=== PATIENT | female | born 1995 | race American Indian/Alaskan Native ===

== ENCOUNTER 2019-06-06 09:11 | Inpatient (IN) | payer OTHER ==
[2019-06-06] MEDS ORDERED: MORPHINE IV ONE ×2 (09:51→11:19)
[2019-06-06] MEDS ORDERED: ZOFRAN IV ONE ×2 (09:51→15:41)
[2019-06-06] MEDS ORDERED: NACL 0.9% 1000 ML 1,000 ML IV ONE ×2 (09:51→15:41)
--- NOTE | 2019-06-06 09:59 | Emergency Department Report ---
ED Abdominal Pain HPI - General Chief Complaint: Abdominal Pain Stated Complaint: ABD PAIN Time Seen by Provider: 06/06/19 09:40 Source: EMS Mode of arrival: Stretcher Limitations: No Limitations - History of Present Illness Initial Comments: 23-year-old female reports the onset of lower abdominal bilateral pain this morning. She states that her period was "different" and ended yesterday but was on time. Not exactly sure what she means by different. She does not refer acute vaginal discharge. She denies fever. She does refer difficulty with urin ating and mentioned constipation at triage. She said no vomiting. She is not currently reporting nausea. He is a bit emotionally labile at the time of my encounter. However, she is able to tell me that she has never come to the emergency department for evaluation of abdominal pain. She states she had a child 2 years ago but no prior abdominal surgery. MD Complaint: abdominal pain -: Gradual Location: LLQ, RLQ Radiation: none Migration to: no migration Severity: moderate, severe Quality: aching Consistency: constant Improves With: nothing Worsens With: nothing Associated Symptoms: constipation, dysuria - Related Data LMP (females 10-50): this week Allergies Allergy/AdvReac Type Severity Reaction Status Date / Time No Known Allergies Allergy Unverified 06/06/19 09:36 ED Review of Systems ROS: Stated complaint: ABD PAIN Other details as noted in HPI Constitutional: denies: chills, fever Eyes: denies: eye pain, eye discharge, vision change ENT: denies: ear pain, throat pain Respiratory: denies: cough, shortness of breath, wheezing Cardiovascular: denies: chest pain, palpitations Endocrine: no symptoms reported Gastrointestinal: abdominal pain. denies: nausea, diarrhea Genitourinary: dysuria. denies: urgency, discharge Musculoskeletal: denies: back pain, joint swelling, arthralgia Skin: denies: rash, lesions Neurological: denies: headache, weakness, paresthesias Psychiatric: denies: anxiety, depression Hematological/Lymphatic: denies: easy bleeding, easy bruising ED Past Medical Hx - Past Medical History Previous Medical History?: No - Surgical History Past Surgical History?: No - Social History Smoking Status: Never Smoker ED Physical Exam - General Limitations: No Limitations General appearance: alert, in no apparent distress - Head Head exam: Present: atraumatic, normocephalic - Eye Eye exam: Present: normal appearance. Absent: scleral icterus - ENT ENT exam: Present: mucous membranes moist - Neck Neck exam: Present: normal inspection - Respiratory Respiratory exam: Present: normal lung sounds bilaterally. Absent: respiratory distress - Cardiovascular Cardiovascular Exam: Present: regular rate, normal rhythm. Absent: systolic murmur, diastolic murmur, rubs, gallop - GI/Abdominal GI/Abdominal exam: Present: soft, tenderness (lower quadrants, poorly localized), normal bowel sounds. Absent: distended, guarding, rebound, rigid - Speculum exam: Present: normal speculum exam (minimal amount of mucoid discharge:) Bi-manual exam: Present: adnexal tenderness. Absent: cervical motion tendernes, uterine enlargement - Extremities Exam Extremities exam: Present: normal inspection - Back Exam Back exam: Present: normal inspection - Neurological Exam Neurological exam: Present: alert, oriented X3, CN II-XII intact. Absent: motor sensory deficit - Psychiatric Psychiatric exam: Present: normal affect, anxious - Skin Skin exam: Present: warm, dry, intact, normal color. Absent: rash ED Course Vital Signs 06/06/19 06/06/19 06/06/19 09:34 09:36 10:15 Temperature 98.5 F 98 F Pulse Rate 62 78 Respiratory 17 16 20 Rate Blood Pressure 127/65 Blood Pressure 106/78 [Right] O2 Sat by Pulse 100 97 Oximetry 06/06/19 06/06/19 06/06/19 10:17 10:30 10:45 Temperature Pulse Rate 79 82 Respiratory 15 20 20 Rate Blood Pressure 99/41 Blood Pressure [Right] O2 Sat by Pulse 100 100 98 Oximetry 06/06/19 06/06/19 06/06/19 11:00 12:11 13:00 Temperature Pulse Rate 85 88 92 H Respiratory 19 15 21 Rate Blood Pressure 114/58 115/62 123/68 Blood Pressure [Right] O2 Sat by Pulse 99 100 100 Oximetry 06/06/19 14:12 Temperature Pulse Rate Respiratory Rate Blood Pressure 126/59 Blood Pressure [Right] O2 Sat by Pulse 98 Oximetry - Reevaluation(s) Reevaluation #1: Persistent suprapubic discomfort. And mild tenderness on exam. Regard to give the patient ceftriaxone. Asked the nurses to obtain a urine specimen. She will go to CT scan. 06/06/19 13:05 Reevaluation #2: Patient had episodes of fecal incontinence. She is volume depleted and having diarrhea. She is really quite uncomfortable. Her CT was suggestive of ente ritis versus PID or both. Her exam was not early consistent with PID. She certainly has acute cystitis. She'll be admitted for intravenous antibiotic therapy IV fluids and further evaluation by hospitalist service. 06/06/19 15:39 ED Medical Decision Making - Lab Data Result diagrams: 06/06/19 09:48 06/06/19 09:48 Laboratory Results - last 24 hr 06/06/19 06/06/19 06/06/19 09:48 09:48 09:48 WBC 14.2 H RBC 3.92 Hgb 12.1 Hct 36.2 MCV 92 MCH 31 MCHC 33 RDW 13.6 Plt Count 206 Add Manual Diff Complete Total Counted 100 Seg Neutrophils % Software Engineer Advisor Seg Neuts % (Manual) 91.0 H Band Neutrophils % 4.0 Lymphocytes % (Manual) 4.0 L Reactive Lymphs % (Man) 0 Monocytes % (Manual) 1.0 Eosinophils % (Manual) 0 Basophils % (Manual) 0 Metamyelocytes % 0 Myelocytes % 0 Promyelocytes % 0 Blast Cells % 0 Nucleated RBC % Not Reportable Seg Neutrophils # Man 12.9 H Band Neutrophils # 0.6 Lymphocytes # (Manual) 0.6 L Abs React Lymphs (Man) 0.0 Monocytes # (Manual) 0.1 Eosinophils # (Manual) 0.0 Basophils # (Manual) 0.0 Metamyelocytes # 0.0 Myelocytes # 0.0 Promyelocytes # 0.0 Blast Cells # 0.0 WBC Morphology Not Reportable Hypersegmented Neuts Not Reportable Hyposegmented Neuts Not Reportable Hypogranular Neuts Not Reportable Smudge Cells Not Reportable Toxic Granulation Not Reportable Toxic Vacuolation Not Reportable Dohle Bodies Not Reportable Pelger-Huet Anomaly Not Reportable Steven Rods Not Reportable Platelet Estimate Consistent w auto Clumped Platelets Not Reportable Plt Clumps, EDTA Not Reportable Large Platelets Not Reportable Giant Platelets Not Reportable Platelet Satelliting Not Reportable Plt Morphology Comment Not Reportable RBC Morphology Normal Dimorphic RBCs Not Reportable Polychromasia Not Reportable Hypochromasia Not Reportable Poikilocytosis Not Reportable Anisocytosis Not Reportable Microcytosis Not Reportable Macrocytosis Not Reportable Spherocytes Not Reportable Pappenheimer Bodies Not Reportable Sickle Cells Not Reportable Target Cells Not Reportable Tear Drop Cells Not Reportable Ovalocytes Not Reportable Helmet Cells Not Reportable Doyle-Peter Bodies Not Reportable Florence Rings Not Reportable Belinda Cells Not Reportable Bite Cells Not Reportable Crenated Cell Not Reportable Elliptocytes Not Reportable Acanthocytes (Spur) Not Reportable Rouleaux Not Reportable Hemoglobin C Crystals Not Reportable Schistocytes Not Reportable Malaria parasites Not Reportable Rodrigue Bodies Not Reportable Hem Pathologist Commnt No Sodium Potassium Chloride Carbon Dioxide Anion Gap BUN Creatinine Estimated GFR BUN/Creatinine Ratio Glucose Calcium Total Bilirubin AST ALT Alkaline Phosphatase Total Protein Albumin Albumin/Globulin Ratio Lipase 21 HCG, Qual Negative Urine Color Urine Turbidity Urine pH Ur Specific [place] Urine Protein Urine Glucose (UA) Urine Ketones Urine Blood Urine Nitrite Urine Bilirubin Urine Urobilinogen Ur Leukocyte Esterase Urine WBC (Auto) Urine RBC (Auto) U Epithel Cells (Auto) Urine Bacteria (Auto) Urine Mucus 06/06/19 06/06/19 09:48 13:30 WBC RBC Hgb Hct MCV MCH MCHC RDW Plt Count Add Manual Diff Total Counted Seg Neutrophils % Seg Neuts % (Manual) Band Neutrophils % Lymphocytes % (Manual) Reactive Lymphs % (Man) Monocytes % (Manual) Eosinophils % (Manual) Basophils % (Manual) Metamyelocytes % Myelocytes % Promyelocytes % Blast Cells % Nucleated RBC % Seg Neutrophils # Man Band Neutrophils # Lymphocytes # (Manual) Abs React Lymphs (Man) Monocytes # (Manual) Eosinophils # (Manual) Basophils # (Manual) Metamyelocytes # Myelocytes # Promyelocytes # Blast Cells # WBC Morphology Hypersegmented Neuts Hyposegmented Neuts Hypogranular Neuts Smudge Cells Toxic Granulation Toxic Vacuolation Dohle Bodies Pelger-Huet Anomaly Steven Rods Platelet Estimate Clumped Platelets Plt Clumps, EDTA Large Platelets Giant Platelets Platelet Satelliting Plt Morphology Comment RBC Morphology Dimorphic RBCs Polychromasia Hypochromasia Poikilocytosis Anisocytosis Microcytosis Macrocytosis Spherocytes Pappenheimer Bodies Sickle Cells Target Cells Tear Drop Cells Ovalocytes Helmet Cells Doyle-Peter Bodies Florence Rings Belinda Cells Bite Cells Crenated Cell Elliptocytes Acanthocytes (Spur) Rouleaux Hemoglobin C Crystals Schistocytes Malaria parasites Rodrigue Bodies Hem Pathologist Commnt Sodium 138 Potassium 4.3 Chloride 104.5 Carbon Dioxide 22 Anion Gap 16 BUN 13 Creatinine 0.9 Estimated GFR > 60 BUN/Creatinine Ratio 14 Glucose 116 H Calcium 9.2 Total Bilirubin 0.60 AST 15 ALT 12 Alkaline Phosphatase 55 Total Protein 6.9 Albumin 4.0 Albumin/Globulin Ratio 1.4 Lipase HCG, Qual Urine Color Yellow Urine Turbidity Cloudy Urine pH 6.0 Ur Specific [place] 1.013 Urine Protein 30 mg/dl Urine Glucose (UA) Neg Urine Ketones 20 Urine Blood Mod Urine Nitrite Neg Urine Bilirubin Neg Urine Urobilinogen < 2.0 Ur Leukocyte Esterase Lg Urine WBC (Auto) > 182.0 H Urine RBC (Auto) 16.0 U Epithel Cells (Auto) 9.0 Urine Bacteria (Auto) 1+ Urine Mucus Few - Radiology Data IMPRESSION: 1. There appears be mild inflammation involving cervix and uterus. Correlate clinically for cervicitis or pelvic inflammatory disease. No hydrosalpinx is seen. 2. Distal small bowel is mildly fluid-filled, as is the proximal colon. This could be reactive ileus related to the pelvic inflammatory process. Enteritis could have this appearance. Signer Name: Anastacio Finch MD Ultrasound no acute process Critical care attestation.: If time is entered above; I have spent that time in minutes in the direct care of this critically ill patient, excluding procedure time. ED Disposition Clinical Impression: Enteritis, Dehydration Acute cystitis Qualifiers: Hematuria presence: with hematuria Qualified Code(s): N30.01 - Acute cystitis with hematuria Disposition: OP ADMIT IP TO THIS HOSP Is pt being admited?: Yes Does the pt Need Aspirin: No Condition: Stable Instructions: Abdominal Pain (ED) Referrals: CLARK GRACIA MD [Primary Care Provider] - 3-5 Days Time of Disposition: 15:42
[2019-06-06 10:04] LABS: Hematocrit 36.2 % (30.3-42.9); Hemoglobin 12.1 gm/dl (10.1-14.3); Mean Corpuscular HGB Conc 33 % (30-34); Mean Corpuscular Volume 92 fl (79-97); Platelet Count 206 K/mm3 (140-440); Red Blood Count 3.92 M/mm3 (3.65-5.03); Red Cell Distribution Width 13.6 % (13.2-15.2)
[2019-06-06 10:32] LABS: Alanine Aminotransferase 12 units/L (7-56); BUN/Creatinine Ratio 14; Blood Urea Nitrogen 13 mg/dL (7-17); Calcium 9.2 mg/dL (8.4-10.2); Hemolysis Index 6
[2019-06-06 11:18] LABS: Band Neutrophils # (Manual) 0.6 K/mm3; Basophils % (Manual) 0 % (0.0-1.8); Eosinophils % (Manual) 0 % (0.0-4.3); Total Cells Counted 100
[2019-06-06 11:19] LABS: Platelet Estimate Consistent w Auto; RBC Morphology Normal
--- NOTE | 2019-06-06 12:52 | Ultrasound Report ---
ULTRASOUND PELVIS INDICATION / CLINICAL INFORMATION: lower abd pain. TECHNIQUE: Transabdominal. Duplex Color Doppler used: Yes. COMPARISON: None available FINDINGS: UTERUS: Present. - Appearance (if present): No significant abnormality. - Size in cm (if present): 11.8 x 5.6 x 5.9. - Endometrial Complex (if present): No significant abnormality.. Thickness in cm (if measured) = 1.3 - Mass lesions: None. - Additional findings: None. RIGHT ADNEXA: Small 1 cm right ovarian cyst. Normal color Doppler blood flow. LEFT ADNEXA: No significant ovarian cyst or mass. Normal color Doppler blood flow. URINARY BLADDER: No significant abnormality. FREE FLUID: None. ADDITIONAL FINDINGS: None. IMPRESSION: 1. No acute sonographic abnormality of the pelvis. 2. 1 cm right ovarian cyst is almost certainly benign and requires no follow-up. Signer Name: Jcarlos Davalos MD Signed: 06/06/2019 12:48 PM Workstation Name: [id number]
[2019-06-06] MEDS ORDERED: ROCEPHIN/NS 1 GM/50 ML 1 GM/50 ML BAG IV ONE (13:05)
[2019-06-06 13:59] LABS: Bacteria,Urine 1+ /HPF (Negative); Bilirubin,Urine NEG (Negative); Blood,Urine MOD (Negative); Color,Urine Yellow (Yellow); Mucus,Urine FEW /HPF; Urobilinogen,Urine < 2.0 mg/dL (<2.0)
[2019-06-06 14:01] LABS: WBC,Urine > 182.0 /HPF (0.0-6.0)
--- NOTE | 2019-06-06 14:12 | Cat Scan Report ---
CT ABDOMEN AND PELVIS WITH IV CONTRAST INDICATION: suprapubic pain. COMPARISON: None available. TECHNIQUE: All CT scans at this facility use dose modulation, automated exposure control, iterative reconstructi on or weight based dosing, when appropriate, to reduce radiation dose to as low as reasonably achieva ble. FINDINGS: Lung Bases: Clear. Skeletal System: No acute abnormality. ABDOMEN: Liver: Normal. Gallbladder: Normal. Bile Ducts: Normal. Pancreas: Normal. Spleen: Normal. Adrenals: Normal. Right Kidney: Normal. Left Kidney: Normal. Stomach and Bowel: Distal loops of small bowel are mildly distended with fluid. Lymph Nodes: No significant adenopathy. Aorta: No significant abnormality. Additional Findings: None. PELVIS: Colon: Proximal colon is fluid-filled. There is no colonic inflammation. Urinary Bladder and Distal Ureters: Bladder is decompressed, limiting its evaluation. Appendix: Normal. Lymph Nodes: No significant adenopathy. Additional Findings: There is mild enhancement along the periphery of the uterus. The endometrium yoon ears thickened. Cervix is thickened. There is gas in the vaginal vault. There is mild stranding aroun d the cervix in the pelvis. IMPRESSION: 1. There appears be mild inflammation involving cervix and uterus. Correlate clinically for cervicit is or pelvic inflammatory disease. No hydrosalpinx is seen. 2. Distal small bowel is mildly fluid-filled, as is the proximal colon. This could be reactive ileus related to the pelvic inflammatory process. Enteritis could have this appearance. Signer Name: Anastacio Finch MD Signed: 06/06/2019 2:07 PM Workstation Name: [id number]
[2019-06-06] MEDS ORDERED: CLEOCIN 600 MG/50 mL 600 MG/50 ML BAG IV ONE (15:10)
[2019-06-06] MEDS ORDERED: ZOFRAN ONE (15:29)
[2019-06-06] MEDS ORDERED: FLAGYL 500 MG/100 ML 500 MG/100 ML BAG IV ONE (15:41)
--- NOTE | 2019-06-06 17:59 | History and Physical Report ---
History of Present Illness Chief complaint: Im hurting down there History of present illness: 23 YO Female with no PMH presents to ED for evaluation. Pt states that she has experienced pain in her abdomen over the past 1 day with persistently worsening symptoms over the past 8 hours. Pt states that her LNMP began 6 days ago, and ended yesterday, but "was Different". Pt acknowledges thick vaginal discharge, as well as pain with urination. 23-year-old female reports the onset of lower abdominal bilateral pain this morning. She states that her period was "different" and ended yesterday but was on time. Not exactly sure what she means by different. She does not refer acute vaginal discharge. She denies fever. She does refer difficulty with urinating and mentioned constipation at triage. She said no vomiting. She is not currently reporting nausea. He is a bit emotionally labile at the time of my encounter. However, she is able to tell me that she has never come to the emergency department for evaluation of abdominal pain. She states she had a child 2 years ago but no prior abdominal surgery. MD Complaint: abdominal pain -: Gradual Location: LLQ, RLQ Radiation: none Migration to: no migration Severity: moderate, severe Quality: aching Consistency: constant Improves With: nothing Worsens With: nothing Associated Symptoms: constipation, dysuria - Related Data LMP (females 10-50): this week Allergies Allergy/AdvReac Type Severity Reaction Status Date / Time No Known Allergies Allergy Unverified 06/06/19 09:36 ED Review of Systems ROS: Stated complaint: ABD PAIN Other details as noted in HPI Constitutional: denies: chills, fever Eyes: denies: eye pain, eye discharge, vision change ENT: denies: ear pain, throat pain Respiratory: denies: cough, shortness of breath, wheezing Cardiovascular: denies: chest pain, palpitations Endocrine: no symptoms reported Gastrointestinal: abdominal pain. denies: nausea, diarrhea Genitourinary: dysuria. denies: urgency, discharge Musculoskeletal: denies: back pain, joint swelling, arthralgia Skin: denies: rash, lesions Neurological: denies: headache, weakness, paresthesias Psychiatric: denies: anxiety, depression Hematological/Lymphatic: denies: easy bleeding, easy bruising ED Past Medical Hx - Past Medical History Previous Medical History?: No - Surgical History Past Surgical History?: No - Social History Smoking Status: Never Smoker Past History Past Medical History: No medical history, other (reviewed) Past Surgical History: No surgical history, Other (Reviewed) Social history: single. denies: smoking, alcohol abuse, prescription drug abuse Family history: no significant family history (reviewed) Medications and Allergies Allergies Allergy/AdvReac Type Severity Reaction Status Date / Time No Known Allergies Allergy Unverified 06/06/19 09:36 Review of Systems Constitutional: no weight loss Ears, nose, mouth and throat: no ear pain, no ear discharge, no decreased hearing, no nasal congestion, no nasal discharge Breasts: no change in shape, no swelling, no mass Cardiovascular: no chest pain, no orthopnea, no palpitations, no rapid/irregular heart beat, no edema Respiratory: no cough, no cough with sputum, no hemoptysis, no shortness of breath Gastrointestinal: no abdominal pain, no vomiting, no diarrhea, no hematemesis Genitourinary Female: pelvic pain, dysuria, vaginal discharge, no urinary frequency, no stress incontinence, no post void dribbling, no vaginal itching, no vaginal odor, no genital sores, no vaginal dryness Rectal: no pain, no incontinence, no bleeding Musculoskeletal: no neck stiffness, no neck pain, no shooting arm pain, no arm numbness/tingling, no low back pain, no leg numbness/tingling Integumentary: no rash, no redness, no sores, no wounds Neurological: no head injury, no paralysis, no weakness, no numbness, no tingling, no syncope, no tremors Psychiatric: no anxiety, no memory loss, no change in sleep habits, no sleep disturbances, no insomnia, no hypersomnia Exam - Constitutional Vitals: Temp Pulse Resp BP Pulse Ox 98 F 92 H 21 126/59 98 06/06/19 09:36 06/06/19 13:00 06/06/19 13:00 06/06/19 14:12 06/06/19 14:12 General appearance: Present: mild distress - EENT Eyes: Present: PERRL ENT: hearing intact, clear oral mucosa - Neck Neck: Present: supple, normal ROM - Respiratory Respiratory effort: normal Respiratory: bilateral: CTA - Cardiovascular Heart Sounds: Present: S1 & S2. Absent: rub, click - Extremities Extremities: pulses symmetrical, No edema Peripheral Pulses: within normal limits - Abdominal General gastrointestinal: Present: soft, tender, non-distended, normal bowel sounds, other (mild suprapubic tenderness). Absent: absent bowel sounds, hepatomegaly, splenomegaly Female genitourinary: Present: normal - Integumentary Integumentary: Present: clear, warm, dry - Musculoskeletal Musculoskeletal: gait normal, strength equal bilaterally - Psychiatric Psychiatric: appropriate mood/affect, intact judgment & insight - Neurologic Neurologic: CNII-XII intact, moves all extremities Results - Labs CBC & Chem 7: 06/06/19 09:48 06/06/19 09:48 Labs: Abnormal lab results 06/06/19 06/06/19 06/06/19 Range/Units 09:48 09:48 13:30 WBC 14.2 H (4.5-11.0) K/mm3 Seg Neuts % (Manual) 91.0 H (40.0-70.0) % Lymphocytes % (Manual) 4.0 L (13.4-35.0) % Seg Neutrophils # Man 12.9 H (1.8-7.7) K/mm3 Lymphocytes # (Manual) 0.6 L (1.2-5.4) K/mm3 Glucose 116 H (65-100) mg/dL Urine WBC (Auto) > 182.0 H (0.0-6.0) /HPF Assessment and Plan - Patient Problems (1) UTI (urinary tract infection) Current Visit: Yes Status: Acute Qualifiers: Encounter type: initial encounter Plan to address problem: IV antibiotic therapy, urinalysis, CBC, CMP, supportive care. (2) SIRS (systemic inflammatory response syndrome) Current Visit: Yes Status: Acute Plan to address problem: IV antibiotic therapy, GC/Chlamydia,CBC, CMP, chest x ray, serial lactic acid, CT Abdomen, Pelvic Ultrasound. (3) Cervicitis Current Visit: Yes Status: Acute Plan to address problem: Discussed patient with COMMUNITY CHEST OFFICER physician ironer or presser. Recommend hospitalist service admit, and continue abx therapy. No further COMMUNITY CHEST OFFICER input. (4) DVT prophylaxis Current Visit: Yes Status: Acute Plan to address problem: SCD to BLE while in bed
[2019-06-06] MEDS ORDERED: PROVENTIL IH PRN (18:02)
[2019-06-06] MEDS ORDERED: TYLENOL PO PRN (18:02)
[2019-06-06] MEDS ORDERED: ZOFRAN IV PRN (18:02)
[2019-06-06] MEDS ORDERED: SODIUM CHLORIDE FLUSH SYRINGE 10 ML IV PRN (18:02)
[2019-06-06] MEDS ORDERED: NACL 0.9% 1000 ML IV ONE (19:00)
[2019-06-06] MEDS ORDERED: TYLENOL ONE (19:06)
[2019-06-06] MEDS ORDERED: NACL 0.9% 1000 ML 1,000 ML ONE (20:12)
[2019-06-06] MEDS: MAXIPIME/NS 2 GM/100 ML 2 GM/100 ML BAG IV SCH (22:30)
[2019-06-06] MEDS: SODIUM CHLORIDE FLUSH SYRINGE 10 ML IV SCH (22:30)
[2019-06-06] MEDS: NACL 0.9% 1000 ML 1,000 ML IV SCH (23:21)
[2019-06-06] MEDS: MORPHINE IV PRN (23:21)
[2019-06-07] MEDS: NACL 0.9% 1000 ML 1,000 ML IV SCH (07:46)
[2019-06-07 09:15] LABS: Hematocrit 31.5 % (30.3-42.9); Hemoglobin 10.3 gm/dl (10.1-14.3); Mean Corpuscular HGB Conc 33 % (30-34); Mean Corpuscular Volume 92 fl (79-97); Platelet Count 165 K/mm3 (140-440); Red Blood Count 3.44 M/mm3 (3.65-5.03); Red Cell Distribution Width 13.4 % (13.2-15.2)
[2019-06-07] MEDS: SODIUM CHLORIDE FLUSH SYRINGE 10 ML IV SCH ×2 (10:00→21:50)
[2019-06-07] MEDS: MAXIPIME/NS 2 GM/100 ML 2 GM/100 ML BAG IV SCH ×2 (10:00→21:50)
[2019-06-07] MEDS ORDERED: D5W/NS W/KCL 20MEQ 20 MEQ/1,000 ML BAG IV SCH (11:00)
--- NOTE | 2019-06-07 11:12 | XRay Report ---
. ABDOMEN 1 VIEW(S) INDICATION / CLINICAL INFORMATION: ILIUS. COMPARISON: None available. FINDINGS: TUBES / LINES: None. BOWEL GAS PATTERN/EXTRALUMINAL GAS: No significant abnormality. No pneumatosis or secondary signs of free air. ADDITIONAL FINDINGS: No significant additional findings. IMPRESSION: 1. No significant abnormality. Signer Name: Michael Cramer MD Signed: 06/07/2019 11:08 AM Workstation Name: [id number]
[2019-06-07] MEDS: FLAGYL 500 MG/100 ML 500 MG/100 ML BAG IV SCH ×2 (12:00→21:50)
--- NOTE | 2019-06-07 14:48 | Progress Note ---
Assessment and Plan / UTI (urinary tract infection) IV antibiotic therapy, follow urine cx, blood cx / SIRS (systemic inflammatory response syndrome) IV antibiotic therapy, follow cx, pending lab / Cervicitis vs PID continue abx therapy, obg/senior maintenance technician consulted. ordered HIV/rpr/STD panel / DVT prophylaxis SCD to BLE while in bed Brief History: 23 YO Female with no PMH presents to ED for evaluation of pain in her abdomen over the past 1 day with persistently worsening symptoms over the past 8 hours. Pt states that her LNMP began 6 days ago, and ended yesterday, but "was Different". Pt acknowledges thick vaginal discharge, as well as pain with urination. CT abdomen/pelvis in the ER suggesting PID, eventhough pelvic US was normal. consulted obg/senior maintenance technician. Subjective Date of service: 06/07/19 Interval history: patient seen and examined afebrile this am, still has lower abdominal pain, no n/v Objective - Constitutional Vitals: Vital Signs - 12hr 06/07/19 06/07/19 05:53 12:14 Temperature 98.6 F 99.2 F Pulse Rate 88 76 Respiratory 18 14 Rate Blood Pressure 103/56 111/56 O2 Sat by Pulse 100 100 Oximetry General appearance: Present: no acute distress, well-nourished - EENT Eyes: PERRL, EOM intact ENT: hearing intact, clear oral mucosa Ears: bilateral: normal - Neck Neck: supple, normal ROM - Respiratory Respiratory effort: normal Respiratory: bilateral: CTA - Cardiovascular Rhythm: regular Heart Sounds: Present: S1 & S2. Absent: gallop, rub Extremities: pulses intact, No edema, normal color, Full ROM - Gastrointestinal General gastrointestinal: Present: soft, tender (pelvic region), non-distended, normal bowel sounds - Genitourinary Female genitourinary: deferred - Integumentary Integumentary: clear, warm, dry - Musculoskeletal Musculoskeletal: 1, strength equal bilaterally - Neurologic Neurologic: moves all extremities - Psychiatric Psychiatric: memory intact, appropriate mood/affect, intact judgment & insight - Labs CBC & Chem 7: 06/07/19 08:42 06/06/19 09:48 Labs: Abnormal lab results 06/07/19 Range/Units 08:42 WBC 15.7 H (4.5-11.0) K/mm3 RBC 3.44 L (3.65-5.03) M/mm3
[2019-06-07] MEDS: MORPHINE IV PRN ×2 (15:56→21:49)
[2019-06-08] MEDS: MORPHINE IV PRN (01:45)
[2019-06-08 05:30] LABS: Basophils # (Auto) 0.1 K/mm3 (0.0-0.1); Basophils % (Auto) 0.7 % (0.0-1.8); Eosinophils # (Auto) 0.1 K/mm3 (0.0-0.4); Eosinophils % (Auto) 0.8 % (0.0-4.3); Hemoglobin 10.1 gm/dl (10.1-14.3); Lymphocytes # (Auto) 1.2 K/mm3 (1.2-5.4); Lymphocytes % (Auto) 8.4 % (13.4-35.0); Mean Corpuscular HGB Conc 34 % (30-34); Mean Corpuscular Volume 91 fl (79-97); Monocytes # (Auto) 0.5 K/mm3 (0.0-0.8); Monocytes % (Auto) 3.7 % (0.0-7.3); Platelet Count 168 K/mm3 (140-440); Red Cell Distribution Width 13.4 % (13.2-15.2)
[2019-06-08] MEDS: FLAGYL 500 MG/100 ML 500 MG/100 ML BAG IV SCH ×2 (05:39→13:38)
[2019-06-08] MEDS: SODIUM CHLORIDE FLUSH SYRINGE 10 ML IV SCH (10:46)
[2019-06-08] MEDS: MAXIPIME/NS 2 GM/100 ML 2 GM/100 ML BAG IV SCH (10:47)
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
[2019-06-08] MEDS ORDERED: ZITHROMAX 500 MG in NACL 0.9% 250ML 250 ML IV SCH (15:00)
--- NOTE | 2019-06-08 16:11 | Progress Note ---
Assessment and Plan Assessment and plan: --Cervicitis / PID IV abx therapy, obg/fpga design engineer evaluation noted and appreciated HIV/rpr negative, follow cultures -- UTI (urinary tract infection) IV antibiotic therapy, follow urine cx, blood cx --SIRS (systemic inflammatory response syndrome) IV antibiotic therapy, follow cx, pending lab --DVT prophylaxis SCD to BLE while in bed Brief History: 23 YO Female with no PMH presents to ED for evaluation of pain in her abdomen over the past 1 day with persistently worsening symptoms over the past 8 hours. Pt states that her LNMP began 6 days ago, and ended yesterday, but "was Different". Pt acknowledges thick vaginal discharge, as well as pain with urination. CT abdomen/pelvis in the ER suggesting PID, eventhough pelvic US was normal. consulted obg/fpga design engineer. History Interval history: Seen and examined medical records reviewed Patient complains of vague abdominal pain and diarrhea On IV antibiotics, RETAIL TIRE SALES MANAGER evaluation and recommendations noted and appreciated Alert awake oriented 3, Vital signs noted Hospitalist Physical - Constitutional Vitals: Temp Pulse Resp BP Pulse Ox 98.8 F 85 18 121/72 100 06/08/19 13:08 06/08/19 13:08 06/08/19 13:08 06/08/19 13:08 06/08/19 13:08 General appearance: Present: no acute distress, well-nourished - EENT Eyes: Present: PERRL, EOM intact - Neck Neck: Present: supple, normal ROM - Respiratory Respiratory effort: normal Respiratory: bilateral: diminished, negative: rales, rhonchi, wheezing - Cardiovascular Rhythm: regular Heart Sounds: Present: S1 & S2 - Extremities Extremities: no ischemia, No edema - Abdominal General gastrointestinal: soft, non-tender, non-distended, normal bowel sounds - Integumentary Integumentary: Present: clear, warm - Psychiatric Psychiatric: appropriate mood/affect, cooperative - Neurologic Neurologic: CNII-XII intact, moves all extremities Results - Labs CBC & Chem 7: 06/08/19 04:50 06/06/19 09:48 Labs: Laboratory Last Values WBC 14.1 K/mm3 (4.5-11.0) H 06/08/19 04:50 RBC 3.30 M/mm3 (3.65-5.03) L 06/08/19 04:50 Hgb 10.1 gm/dl (10.1-14.3) 06/08/19 04:50 Hct 30.0 % (30.3-42.9) L 06/08/19 04:50 MCV 91 fl (79-97) 06/08/19 04:50 MCH 31 pg (28-32) 06/08/19 04:50 MCHC 34 % (30-34) 06/08/19 04:50 RDW 13.4 % (13.2-15.2) 06/08/19 04:50 Plt Count 168 K/mm3 (140-440) 06/08/19 04:50 Lymph % (Auto) 8.4 % (13.4-35.0) L 06/08/19 04:50 [place] % (Auto) 3.7 % (0.0-7.3) 06/08/19 04:50 Eos % (Auto) 0.8 % (0.0-4.3) 06/08/19 04:50 Baso % (Auto) 0.7 % (0.0-1.8) 06/08/19 04:50 Lymph # 1.2 K/mm3 (1.2-5.4) 06/08/19 04:50 [place] # 0.5 K/mm3 (0.0-0.8) 06/08/19 04:50 Eos # 0.1 K/mm3 (0.0-0.4) 06/08/19 04:50 Baso # 0.1 K/mm3 (0.0-0.1) 06/08/19 04:50 Add Manual Diff Complete 06/06/19 09:48 Total Counted 100 06/06/19 09:48 Seg Neutrophils % 86.4 % (40.0-70.0) H 06/08/19 04:50 Seg Neuts % (Manual) 91.0 % (40.0-70.0) H 06/06/19 09:48 4.0 % 06/06/19 09:48 4.0 % (13.4-35.0) L 06/06/19 09:48 Reactive Lymphs % (Man) 0 % 06/06/19 09:48 1.0 % (0.0-7.3) 06/06/19 09:48 0 % (0.0-4.3) 06/06/19 09:48 0 % (0.0-1.8) 06/06/19 09:48 0 % 06/06/19 09:48 0 % 06/06/19 09:48 0 % 06/06/19 09:48 0 % 06/06/19 09:48 Nucleated RBC % Not Reportable 06/06/19 09:48 Seg Neutrophils # 12.2 K/mm3 (1.8-7.7) H 06/08/19 04:50 Seg Neutrophils # Man 12.9 K/mm3 (1.8-7.7) H 06/06/19 09:48 Band Neutrophils # 0.6 K/mm3 06/06/19 09:48 0.6 K/mm3 (1.2-5.4) L 06/06/19 09:48 Abs React Lymphs (Man) 0.0 K/mm3 06/06/19 09:48 0.1 K/mm3 (0.0-0.8) 06/06/19 09:48 0.0 K/mm3 (0.0-0.4) 06/06/19 09:48 0.0 K/mm3 (0.0-0.1) 06/06/19 09:48 0.0 K/mm3 06/06/19 09:48 0.0 K/mm3 06/06/19 09:48 0.0 K/mm3 06/06/19 09:48 Blast Cells # 0.0 K/mm3 06/06/19 09:48 WBC Morphology Not Reportable 06/06/19 09:48 Hypersegmented Neuts Not Reportable 06/06/19 09:48 Hyposegmented Neuts Not Reportable 06/06/19 09:48 Hypogranular Neuts Not Reportable 06/06/19 09:48 Not Reportable 06/06/19 09:48 Not Reportable 06/06/19 09:48 Not Reportable 06/06/19 09:48 Not Reportable 06/06/19 09:48 Not Reportable 06/06/19 09:48 Not Reportable 06/06/19 09:48 Consistent w auto 06/06/19 09:48 Not Reportable 06/06/19 09:48 Plt Clumps, EDTA Not Reportable 06/06/19 09:48 Not Reportable 06/06/19 09:48 Not Reportable 06/06/19 09:48 Not Reportable 06/06/19 09:48 Plt Morphology Comment Not Reportable 06/06/19 09:48 RBC Morphology Normal 06/06/19 09:48 Dimorphic RBCs Not Reportable 06/06/19 09:48 Not Reportable 06/06/19 09:48 Not Reportable 06/06/19 09:48 Not Reportable 06/06/19 09:48 Not Reportable 06/06/19 09:48 Not Reportable 06/06/19 09:48 Not Reportable 06/06/19 09:48 Not Reportable 06/06/19 09:48 Not Reportable 06/06/19 09:48 Not Reportable 06/06/19 09:48 Not Reportable 06/06/19 09:48 Not Reportable 06/06/19 09:48 Not Reportable 06/06/19 09:48 Not Reportable 06/06/19 09:48 Not Reportable 06/06/19 09:48 Not Reportable 06/06/19 09:48 Not Reportable 06/06/19 09:48 Not Reportable 06/06/19 09:48 Not Reportable 06/06/19 09:48 Not Reportable 06/06/19 09:48 Acanthocytes (Spur) Not Reportable 06/06/19 09:48 Rouleaux Not Reportable 06/06/19 09:48 Not Reportable 06/06/19 09:48 Not Reportable 06/06/19 09:48 Not Reportable 06/06/19 09:48 Not Reportable 06/06/19 09:48 Hem Pathologist Commnt No 06/06/19 09:48 Sodium 138 mmol/L (137-145) 06/06/19 09:48 Potassium 4.3 mmol/L (3.6-5.0) 06/06/19 09:48 Chloride 104.5 mmol/L (98-107) 06/06/19 09:48 Carbon Dioxide 22 mmol/L (22-30) 06/06/19 09:48 16 mmol/L 06/06/19 09:48 BUN 13 mg/dL (7-17) 06/06/19 09:48 0.9 mg/dL (0.7-1.2) 06/06/19 09:48 Estimated GFR > 60 ml/min 06/06/19 09:48 14 % 06/06/19 09:48 Glucose 116 mg/dL (65-100) H 06/06/19 09:48 Lactic Acid 1.90 mmol/L (0.7-2.0) 06/07/19 00:46 Calcium 9.2 mg/dL (8.4-10.2) 06/06/19 09:48 0.60 mg/dL (0.1-1.2) 06/06/19 09:48 AST 15 units/L (5-40) 06/06/19 09:48 ALT 12 units/L (7-56) 06/06/19 09:48 55 units/L (35-129) 06/06/19 09:48 6.9 g/dL (6.3-8.2) 06/06/19 09:48 4.0 g/dL (3.9-5) 06/06/19 09:48 1.4 % 06/06/19 09:48 21 units/L (13-60) 06/06/19 09:48 HCG, Qual Negative (Negative) 06/06/19 09:48 Yellow (Yellow) 06/06/19 13:30 Cloudy (Clear) 06/06/19 13:30 6.0 (5.0-7.0) 06/06/19 13:30 Ur Specific [place] 1.013 (1.003-1.030) 06/06/19 13:30 30 mg/dl mg/dL (Negative) 06/06/19 13:30 Neg mg/dL (Negative) 06/06/19 13:30 20 mg/dL (Negative) 06/06/19 13:30 Mod (Negative) 06/06/19 13:30 Neg (Negative) 06/06/19 13:30 Neg (Negative) 06/06/19 13:30 < 2.0 mg/dL (<2.0) 06/06/19 13:30 Ur Leukocyte Esterase Lg (Negative) 06/06/19 13:30 > 182.0 /HPF (0.0-6.0) H 06/06/19 13:30 16.0 /HPF (0.0-6.0) 06/06/19 13:30 U Epithel Cells (Auto) 9.0 /HPF (0-13.0) 06/06/19 13:30 1+ /HPF (Negative) 06/06/19 13:30 Few /HPF 06/06/19 13:30 RPR Nonreactive (Nonreactive) 06/07/19 11:27 HIV 1&2 Antibody Rapid Non react (Non React) 06/07/19 11:27 Non react (Non React) 06/07/19 11:27 Active Medications - Current Medications Current Medications: Generic Name Dose Route Start Last Admin Trade Name Freq PRN Reason Stop Dose Admin Acetaminophen 650 mg 06/06/19 18:02 06/06/19 19:09 Tylenol PO 650 mg Q4H PRN Administration Pain MILD(1-3)/Fever >100.5/ALVARADO Albuterol 2.5 mg 06/06/19 18:02 Proventil IH Q4H PRN Shortness Of Breath Cefepime HCl 2 gm in 100 mls @ 200 mls/hr 06/06/19 22:00 06/08/19 10:47 Maxipime/Ns 2 Gm/100 Ml IV 200 mls/hr Q12HR ORION Administration Protocol Sodium Chloride 1,000 mls @ 125 mls/hr 06/06/19 23:00 06/07/19 07:46 Nacl 0.9% 1000 Ml IV 125 mls/hr DIRECT ORION Administration Potassium Chloride/Dextrose/Sod Cl 20 meq in 1,000 mls @ 75 mls/hr 06/07/19 11:00 06/08/19 01:36 D5w/Ns W/Kcl 20meq IV 75 mls/hr DIRECT ORION Administration Metronidazole 500 mg in 100 mls @ 100 mls/hr 06/07/19 12:00 06/08/19 13:38 Flagyl 500 Mg/100 Ml IV 100 mls/hr Q8HR ORION Administration Protocol Morphine Sulfate 2 mg 06/06/19 22:58 06/08/19 01:45 Morphine IV 2 mg Q4H PRN Administration Pain, Moderate (4-6) Ondansetron HCl 4 mg 06/06/19 18:02 06/07/19 21:49 Zofran IV 4 mg Q8H PRN Administration Nausea And Vomiting Sodium Chloride 10 ml 06/06/19 22:00 06/08/19 10:46 Sodium Chloride Flush Syringe 10 Ml IV 10 ml BID ORION Administration Sodium Chloride 10 ml 06/06/19 18:02 Sodium Chloride Flush Syringe 10 Ml IV PRN PRN LINE FLUSH
[2019-06-08 19:35] VITALS: BP 133/61
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
--- NOTE | 2019-06-09 13:38 | Event Note ---
Date: 06/09/19 +GC noted, spoke with Dr. Walls who will contact patient for evaluation and possible additional treatment
--- NOTE | 2019-06-09 17:27 | Event Note ---
Date: 06/09/19 Patient's GC DNA is positive Called Ms.Esquivel Miranda at [phone] and discussed the positive test report Discussed the importance of immediate treatment and further evaluation, Advised to see [facility] or ID specialist for the treatment and further evaluation.Patient verbalized understanding and agreed to follow the instructions. I also advised her to see ID specialist ASHLEY and gave the below information. Dr.Kairav Jeronimo DUDLEY [ ID ] [facility] infectious disease consultants Office; [phone] [id number]
== END 2019-06-08 18:45 | disposition left against medical advice (07) | DRG 758 ==
LOC: ED 09:11 → 3A 18:02
PROVIDERS: ADMIT Internal Medicine; ATTEND Internal Medicine
DX: N72 Inflammatory disease of cervix uteri (principal); N30.00 Acute cystitis without hematuria; R65.10 Systemic inflammatory response syndrome (SIRS) of non-infectious origin without acute organ dysfunction; A54.9 Gonococcal infection, unspecified; N73.9 Female pelvic inflammatory disease, unspecified; E86.0 Dehydration; K52.9 Noninfective gastroenteritis and colitis, unspecified
CPT/HCPCS: 36415; 74018; 74177; 76856; 80053; 81001; 82140; 83690; 84703; 85007; 85025; 85027; 86592; 87040; 87086; 87210; 87591; 87806; 99406; G0378; J0456; J0692; J0696; J2270; J2405; J7030; J7050; Q9967